=== PATIENT | female | born 1970 | race Caucasian/White ===

== ENCOUNTER → 2016-12-03 | Outpatient (CLI) | payer OTHER ==
--- NOTE | 2016-12-04 07:50 | MM ---
Reason for exam: additional evaluation requested from abnormal screening. Last mammogram was performed less than 1 month ago. History: Took hormonal contraceptives for 12 years beginning at age 18. Physical Findings: Nurse did not find any significant physical abnormalities on exam. MG 3D Work Up W/Cad LT CC, MLO, and ML view(s) were taken of the left breast. Prior study comparison: November 26, 2016, bilateral MG 3d screening mammo w/cad. April 16, 2015, right breast US breast workup limited RT. April 11, 2015, bilateral MG screening mammo w CAD. December 20, 2012, bilateral digital screening mammo w/CAD. The breast tissue is heterogeneously dense. This may lower the sensitivity of mammography. The questioned superior asymmetric density does not persist. These results were verbally communicated with the patient and result sheet given to the patient on 12/03/16. ASSESSMENT: Negative, BI-RAD 1 RECOMMENDATION: Return to routine screening mammogram schedule for both breasts.
== END | disposition home or self-care (01) ==
LOC: RADMAMWWP 15:40
PROVIDERS: ATTEND Obstetrics & Gynecology
DX: R92.8 Other abnormal and inconclusive findings on diagnostic imaging of breast (principal)
CPT/HCPCS: G0206; G0279

== ENCOUNTER → 2016-12-16 | Outpatient (CLI) | payer OTHER ==
[2016-12-16 10:27] LABS: Basophils # (A) 0.1 k/uL (0-0.2); Basophils % (A) 1 %; CH 31.5; CHCM 32.3; Eosinophils # (A) 0.3 k/uL (0-0.7); Eosinophils % (A) 5 %; HCT 43.5 % (34.0-46.0); HDW 2.34; HGB 14.4 gm/dL (11.4-16.0); Luc # (Auto) 0.09; Luc % (Auto) 2; Lymphocytes # (A) 1.8 k/uL (1.0-4.8); Lymphocytes % (A) 30 %; MCH 32.4 pg (25.0-35.0); Mean Platelet Volume 6.9; Monocytes # (A) 0.3 k/uL (0-1.0); Monocytes % (A) 5 %; Neutrophils # (A) 3.4 k/uL (1.3-7.7); Neutrophils % (A) 57 %; RBC 4.44 m/uL (3.80-5.40); RDW 13.3 % (11.5-15.5); WBC 5.9 k/uL (3.8-10.6); WBC (Perox) 6.32
[2016-12-16 10:46] LABS: Anion Gap 10 mmol/L; Blood Urea Nitrogen 14 mg/dL (7-17); Calcium 9.4 mg/dL (8.4-10.2); Carbon Dioxide 29 mmol/L (22-30); Chloride 104 mmol/L (98-107); Glucose 64 mg/dL (74-99); Non-African American GFR(MDRD) >60 (>60 ml/min/1.73 sqM); Potassium 4.6 mmol/L (3.5-5.1); Sodium 143 mmol/L (137-145)
== END | disposition home or self-care (01) ==
LOC: LABPAT 09:15
PROVIDERS: ATTEND Obstetrics & Gynecology
DX: Z01.812 Encounter for preprocedural laboratory examination (principal)
CPT/HCPCS: 36415; 80048; 85025

== ENCOUNTER → 2018-03-18 | Outpatient (CLI) | payer OTHER ==
--- NOTE | 2018-03-25 08:34 | MM ---
Reason for exam: screening (asymptomatic). Last mammogram was performed 1 year and 3 months ago. History: Took hormonal contraceptives for 12 years beginning at age 18. MG 3D Screening Mammo W/Cad Bilateral CC and MLO view(s) were taken. Prior study comparison: December 03, 2016, left breast MG 3d work up w/cad LT. November 26, 2016, bilateral MG 3d screening mammo w/cad. The breast tissue is heterogeneously dense. This may lower the sensitivity of mammography. No significant changes when compared with prior studies. ASSESSMENT: Negative, BI-RAD 1 RECOMMENDATION: Routine screening mammogram of both breasts in 1 year.
== END | disposition home or self-care (01) ==
LOC: RADMAMWWP 12:43
PROVIDERS: ATTEND Family Medicine
DX: Z12.31 Encounter for screening mammogram for malignant neoplasm of breast (principal)
CPT/HCPCS: 77063; 77067

== ENCOUNTER 2018-09-07 08:45 | Day surgery (SDC) | payer OTHER ==
[2018-09-02 10:27] VITALS: BMI 31.2
[~2018-09-07 08:45] MED LIST: LACTATED RINGERS 1,000 ML IV SCH; LIDOCAINE 1% 20 ML VIAL (10MG/ML) FOR IV START INTRADERMA PRN
[2018-09-07 09:06] VITALS: TEMP 97.9
[2018-09-07] MEDS ORDERED: LIDOCAINE 1% INJ 10MG/ML (20 ML MDV) ONE (09:58)
[2018-09-07] MEDS ORDERED: PROPOFOL 10 MG/ML 20 ML VIAL IV ONE (09:58)
--- NOTE | 2018-09-07 10:01 | P.GSHP ---
History of Present Illness H&P Date: 09/07/18 Chief Complaint: GERD, globus Patient has complaints of feeling something in the back of her throat. She says it fluctuates. Present for the last few years. Also complaining of heartburn at times. He did have relief with Prilosec. Recently tried stopping her antiacids with recurrent symptoms. No significant dysphagia. Past Medical History Past Medical History: GERD/Reflux, Thyroid Disorder Additional Past Medical History / Comment(s): "having increase acid reflux and indigestion with feeling something is in my throat",rectocele and constipation,seasonal alg,steroid injection August 2018 History of Any Multi-Drug Resistant Organisms: None Reported Past Surgical History: Hysterectomy, Tonsillectomy, Uterine Ablation Additional Past Surgical History / Comment(s): lt knee-scope,diagnostic laparoscopic abdominal , robot hyst,rt hip injections Past Anesthesia/Blood Transfusion Reactions: Motion Sickness, Postoperative Nausea & Vomiting (PONV) Additional Past Anesthesia/Blood Transfusion Reaction / Comment(s): no hx blood transfusion Smoking Status: Never smoker - Past Family History Mother Family Medical History: Cancer Additional Family Medical History / Comment(s): melanoma stage 4 Medications and Allergies Home Medications Medication Instructions Recorded Confirmed Type Levothyroxine Sodium [Synthroid] 88 mcg PO QAM 11/27/14 09/02/18 History Multivitamins, Thera [Multivitamin 1 tab PO DAILY 12/21/16 09/02/18 History (formulary)] Ergocalciferol (Vitamin D2) 50,000 unit PO WE 09/02/18 09/02/18 History [Vitamin D2] Fexofenadine HCl [Adia Allergy] 180 mg PO DAILY 09/02/18 09/07/18 History Montelukast [Singulair] 10 mg PO DAILY 09/02/18 09/02/18 History Triamcinolone Acetonide [Nasacort] 1 spray EA NOSTRIL DAILY 09/02/18 09/07/18 History Allergies Allergy/AdvReac Type Severity Reaction Status Date / Time Penicillins Allergy Anaphylaxis Verified 09/07/18 08:57 Surgical - Exam Vital Signs Temp Pulse Resp BP Pulse Ox 97.9 F 63 16 140/73 97 09/07/18 09:05 09/07/18 09:05 09/07/18 09:05 09/07/18 09:05 09/07/18 09:05 Physical exam: General: Well-developed, well-nourished HEENT: Normocephalic, sclerae nonicteric Abdomen: Nontender, nondistended Extremities: No edema Neuro: Alert and oriented Assessment and Plan (1) GERD (gastroesophageal reflux disease) Narrative/Plan: Will proceed with upper endoscopy. Current Visit: Yes Status: Acute Code(s): K21.9 - GASTRO-ESOPHAGEAL REFLUX DISEASE WITHOUT ESOPHAGITIS SNOMED Code(s): 574830920
--- NOTE | 2018-09-07 10:11 | P.PCN ---
Date of Procedure: 09/07/18 Procedure(s) Performed: Preoperative Dx: GERD, globus sensation Postoperative Dx: Mild gastritis, small gastric polyps Procedure: EGD with Bx Anesthesia: Sedation Endoscopist: Dr. Tsai Specimens: Antrum, gastric polyp Endoscopic Procedure: The patient was on the endoscopy table in the left decubitus position. The Olympus gastroscope was inserted into the oropharynx and passed under direct visualization to the region of the third portion of the duodenum. From that point the scope was slowly withdrawn inspecting all surfaces carefully. There were no neoplastic inflammatory or polypoid lesions throughout the duodenum. The pylorus was widely patent. The stomach was carefully inspected. There was mild gastritis present. A biopsy of the antrum took place to rule out H. pylori. The patient also had a few small gastric polyps. The largest was removed for sampling purposes. These all measured approximately 5 mm in size. Retroflexion revealed a normal hiatus. The esophagus was then carefully examined. There were no neoplastic inflammatory or polypoid lesions throughout the visualized esophagus. The patient was then taken to the recovery room in stable condition per anesthesia guidelines. Recommendations: Await biopsy results. Resume antiacid therapy. If globus persists consider ENT evaluation.
[2018-09-07 10:15] VITALS: RESP 18
[2018-09-07 10:30] VITALS: BP 130/84; PULSE 60
== END 2018-09-07 10:49 | disposition home or self-care (01) ==
LOC: ORWHC2ENDO 08:45
PROVIDERS: ATTEND Surgery
DX: K29.50 Unspecified chronic gastritis without bleeding (principal); K31.7 Polyp of stomach and duodenum; K21.9 Gastro-esophageal reflux disease without esophagitis; F45.8 Other somatoform disorders; E07.9 Disorder of thyroid, unspecified; F90.9 Attention-deficit hyperactivity disorder, unspecified type; F32.9 Major depressive disorder, single episode, unspecified; Z80.8 Family history of malignant neoplasm of other organs or systems; Z79.890 Hormone replacement therapy; Z79.51 Long term (current) use of inhaled steroids; Z88.0 Allergy status to penicillin; Z79.899 Other long term (current) drug therapy
CPT/HCPCS: 88305; 43239; J2001; J2704

== ENCOUNTER → 2018-11-14 | Outpatient (CLI) | payer OTHER ==
--- NOTE | 2018-11-14 15:05 | US ---
EXAMINATION TYPE: US thyroid st tissue head/neck DATE OF EXAM: 11/14/2018 COMPARISON: Nuclear medicine thyroid scan and uptake April 28, 2012 CLINICAL HISTORY: R22.0 Localized swelling, mass and lump. GLAND SIZE: Right Lobe: 4.0 x 1.8 x 1.8 cm Overall Parenchyma: heterogenous Left Lobe: 4.0 x 1.7 x 1.5 cm Overall Parenchyma: heterogeneous Isthmus Thickness: 0.4 cm NODULES RIGHT: # of nodules measured on right: 0 LEFT: # of nodules measured on left: 0 ISTHMUS: # of nodules measured in the isthmus: 0 Bilateral neck scanned, no evidence of lymphadenopathy. Slightly heterogeneous normal-sized thyroid without worrisome nodule. IMPRESSION: As above.
== END | disposition home or self-care (01) ==
LOC: RADUSWWP 14:12
PROVIDERS: ATTEND Family Medicine
DX: E06.9 Thyroiditis, unspecified (principal); R22.0 Localized swelling, mass and lump, head; Z88.0 Allergy status to penicillin
CPT/HCPCS: 76536

== ENCOUNTER → 2019-04-12 | Outpatient (CLI) | payer OTHER ==
--- NOTE | 2019-04-13 12:16 | MM ---
Reason for exam: screening (asymptomatic). Last mammogram was performed 1 year and 1 month ago. History: Took hormonal contraceptives for 12 years beginning at age 18. Physical Findings: A clinical breast exam by your physician is recommended on an annual basis and results should be correlated with mammographic findings. MG 3D Screening Mammo W/Cad Bilateral CC and MLO view(s) were taken. Prior study comparison: March 18, 2018, bilateral MG 3d screening mammo w/cad. December 03, 2016, left breast MG 3d work up w/cad LT. The breast tissue is heterogeneously dense. This may lower the sensitivity of mammography. No suspicious abnormality. No significant changes when compared with prior studies. ASSESSMENT: Negative, BI-RAD 1 RECOMMENDATION: Routine screening mammogram of both breasts in 1 year.
== END | disposition home or self-care (01) ==
LOC: RADMAMWWP 09:17
PROVIDERS: ATTEND Obstetrics & Gynecology
DX: Z12.31 Encounter for screening mammogram for malignant neoplasm of breast (principal)
CPT/HCPCS: 77063; 77067

== ENCOUNTER 2020-06-07 09:46 | Day surgery (SDC) | payer OTHER ==
[2020-06-05 10:51] VITALS: BMI 32.1
[2020-06-07 10:11] VITALS: TEMP 98.5
[2020-06-07] MEDS ORDERED: LIDOCAINE 1% (10MG/ML) FOR IV START INTRADERMA ONE (10:28)
[2020-06-07] MEDS: LACTATED RINGERS 1,000 ML IV SCH ×2 (10:29→11:23)
[2020-06-07] MEDS ORDERED: PROPOFOL 10 MG/ML 20 ML VIAL IV ONE (11:23)
--- NOTE | 2020-06-07 11:25 | P.GSHP ---
History of Present Illness H&P Date: 06/07/20 Chief Complaint: Screen colonoscopy This a 50-year-old female who presents today for screening colonoscopy. Patient denies a significant GI complaints. Past Medical History Past Medical History: GERD/Reflux, Thyroid Disorder Additional Past Medical History / Comment(s): RLS, History of Any Multi-Drug Resistant Organisms: None Reported Past Surgical History: Hysterectomy, Orthopedic Surgery, Tonsillectomy, Uterine Ablation Additional Past Surgical History / Comment(s): lt knee-scope,diagnostic laparoscopic abdominal ,rt hip injections Past Anesthesia/Blood Transfusion Reactions: Motion Sickness, Postoperative Nausea & Vomiting (PONV) Additional Past Anesthesia/Blood Transfusion Reaction / Comment(s): no hx blood transfusion Smoking Status: Never smoker - Past Family History Mother Family Medical History: Cancer Additional Family Medical History / Comment(s): melanoma stage 4 Medications and Allergies Home Medications Medication Instructions Recorded Confirmed Type Multivitamins, Thera [Multivitamin 1 tab PO DAILY 12/21/16 06/07/20 History (formulary)] Fexofenadine HCl [Adia Allergy] 180 mg PO DAILY 09/02/18 06/07/20 History Triamcinolone Acetonide [Nasacort] 1 spray EA NOSTRIL DAILY 09/02/18 06/07/20 History Magnesium Oxide 400 mg PO HS 06/05/20 06/07/20 History Thyroid,Pork [Sweep Molder Thyroid] 60 mg PO DAILY 06/05/20 06/07/20 History Topiramate [Topamax] 50 mg PO BID 06/05/20 06/07/20 History rOPINIRole HCL [Requip] 0.5 mg PO HS 06/05/20 06/07/20 History Naproxen Sodium [Aleve] 440 mg PO ONCE 06/07/20 06/07/20 History Allergies Allergy/AdvReac Type Severity Reaction Status Date / Time Penicillins Allergy Anaphylaxis Verified 06/07/20 10:04 Surgical - Exam Vital Signs Temp Pulse Resp BP Pulse Ox 98.5 F 67 16 166/74 100 06/07/20 10:10 06/07/20 10:10 06/07/20 10:10 06/07/20 10:10 06/07/20 10:10 - General well developed, well nourished, no distress - Eyes PERRL - ENT normal pinna - Neck no masses - Respiratory normal expansion - Cardiovascular Rhythm: regular - Abdomen Abdomen: soft, non tender Assessment and Plan Assessment: Perform screening colonoscopy.
--- NOTE | 2020-06-07 11:35 | P.OP ---
Date of Procedure: 06/07/20 Preoperative Diagnosis: Screening colonoscopy Postoperative Diagnosis: Normal colonoscopy Procedure(s) Performed: Colonoscopy Anesthesia: MAC Surgeon: Arturo Sun Pathology: none sent Condition: stable Disposition: PACU Description of Procedure: PROCEDURE: The patient was placed on the endoscopy table in the lateral position. Digital rectal examination was performed which revealed no abnormalities. . Flexible colonoscope was then placed in the patient's anus and passed throughout the entire colon. The ileocecal valve was visualized. The cecum, ascending, transverse, descending and sigmoid colon were normal. The rectum was normal as well. There were no masses, polyps or diverticula noted in the entire colon. SUMMARY OF FINDINGS: Normal colonoscopy.
[2020-06-07 12:23] VITALS: BP 128/87; PULSE 88; RESP 20
== END 2020-06-07 12:23 | disposition home or self-care (01) ==
LOC: ORWHC2ENDO 09:46
PROVIDERS: ATTEND Surgery
DX: Z12.11 Encounter for screening for malignant neoplasm of colon (principal); K21.9 Gastro-esophageal reflux disease without esophagitis; G25.81 Restless legs syndrome; Z80.8 Family history of malignant neoplasm of other organs or systems; Z79.890 Hormone replacement therapy; Z79.899 Other long term (current) drug therapy; Z88.0 Allergy status to penicillin
CPT/HCPCS: 45378; J2704

== ENCOUNTER → 2020-07-04 | Outpatient (CLI) | payer OTHER ==
--- NOTE | 2020-07-05 13:30 | MM ---
Reason for exam: screening (asymptomatic). Last mammogram was performed 1 year and 3 months ago. History: Took hormonal contraceptives for 12 years beginning at age 18. Physical Findings: A clinical breast exam by your physician is recommended on an annual basis and results should be correlated with mammographic findings. MG 3D Screening Mammo W/Cad Bilateral CC and MLO view(s) were taken. Prior study comparison: April 12, 2019, bilateral MG 3d screening mammo w/cad. March 18, 2018, bilateral MG 3d screening mammo w/cad. The breast tissue is heterogeneously dense. This may lower the sensitivity of mammography. Benign appearing calcifications in the right breast. No significant changes when compared with prior studies. ASSESSMENT: Benign, BI-RAD 2 RECOMMENDATION: Routine screening mammogram of both breasts in 1 year.
== END | disposition home or self-care (01) ==
LOC: RADMAMWWP 13:15
PROVIDERS: ATTEND Family Medicine
DX: Z12.31 Encounter for screening mammogram for malignant neoplasm of breast (principal)
CPT/HCPCS: 77063; 77067

== ENCOUNTER 2020-11-21 06:55 | Emergency (ER) | payer OTHER ==
[2020-11-21 07:02] VITALS: RESP 18
[2020-11-21] MEDS ORDERED: SODIUM CHLORIDE 0.9% 1,000 ML IV STA (07:04)
[2020-11-21] MEDS ORDERED: SODIUM CHLORIDE 0.9% 500 ML 500 ML IV STA (07:04)
[2020-11-21] MEDS ORDERED: METOCLOPRAMIDE 5 MG/ML 2 ML VIAL IVP STA (07:18)
--- NOTE | 2020-11-21 07:26 | ED ---
Abdominal Pain HPI - General Chief Complaint: Abdominal Pain Stated Complaint: Abdominal Pain Time Seen by Provider: 11/21/20 07:04 Source: patient, RN notes reviewed Mode of arrival: wheelchair Limitations: no limitations - History of Present Illness Initial Comments: This a 50-year-old female presents emergency with chief complaint of abdominal pain. Patient states she has been constipated for over 10 days and which she states she drank a bottle magnesium citrate a few days ago states she had a bowel movement but states it was not nearly enough she still states her last 3 night she's taken 2 Dulcolax and last that she did end up taking 3. She states she woke up this morning had liquid stool severe abdominal pain cramping. Patient states she did have colonoscopy within the last year she states was normal. She's had a history of hysterectomy no point dysuria hematuria she states she had severe cramping, cold sweats morning no chest pain or shortness of breath. - Related Data Home Medications Medication Instructions Recorded Confirmed Thyroid,Pork [Managing Partner Thyroid] 60 mg PO DAILY 06/05/20 11/21/20 rOPINIRole HCL [Requip] 0.5 mg PO HS 06/05/20 11/21/20 Naproxen Sodium [Aleve] 440 mg PO HS 06/07/20 11/21/20 Phentermine HCl [Adipex-P] 37.5 mg PO DAILY 11/21/20 11/21/20 Rybelsus (Unknown Dose) 1 dose PO DAILY 11/21/20 11/21/20 Allergies Allergy/AdvReac Type Severity Reaction Status Date / Time Penicillins Allergy Anaphylaxis Verified 11/21/20 07:02 Review of Systems ROS Statement: Those systems with pertinent positive or pertinent negative responses have been documented in the HPI. ROS Other: All systems not noted in ROS Statement are negative. Past Medical History Past Medical History: GERD/Reflux, Thyroid Disorder Additional Past Medical History / Comment(s): RLS, History of Any Multi-Drug Resistant Organisms: None Reported Past Surgical History: Hysterectomy, Orthopedic Surgery, Tonsillectomy, Uterine Ablation Additional Past Surgical History / Comment(s): lt knee-scope,diagnostic laparoscopic abdominal ,rt hip injections Past Anesthesia/Blood Transfusion Reactions: Motion Sickness, Postoperative Nausea & Vomiting (PONV) Additional Past Anesthesia/Blood Transfusion Reaction / Comment(s): no hx blood transfusion Past Psychological History: ADD/ADHD Smoking Status: Never smoker Past Alcohol Use History: Rare Past Drug Use History: None Reported - Past Family History Mother Family Medical History: Cancer Additional Family Medical History / Comment(s): melanoma stage 4 General Exam General appearance: alert, in no apparent distress Head exam: Present: atraumatic, normocephalic, normal inspection Eye exam: Present: normal appearance, PERRL, EOMI. Absent: scleral icterus, conjunctival injection, periorbital swelling ENT exam: Present: normal exam, normal oropharynx, mucous membranes moist Neck exam: Present: normal inspection, full ROM. Absent: tenderness, meningismus, lymphadenopathy Respiratory exam: Present: normal lung sounds bilaterally. Absent: respiratory distress, wheezes, rales, rhonchi, stridor Cardiovascular Exam: Present: regular rate, normal rhythm, normal heart sounds. Absent: systolic murmur, diastolic murmur, rubs, gallop, clicks GI/Abdominal exam: Present: soft, tenderness (Mild diffuse), normal bowel sounds. Absent: distended, guarding, rebound, rigid Back exam: Absent: CVA tenderness (R), CVA tenderness (L) Neurological exam: Present: alert Skin exam: Present: warm, dry, intact, normal color. Absent: rash Course Vital Signs 11/21/20 11/21/20 06:58 08:02 Temperature 97.5 F L Pulse Rate 70 Respiratory 18 18 Rate Blood Pressure 127/84 O2 Sat by Pulse 100 Oximetry Medical Decision Making - Medical Decision Making 50-year-old presented for abdominal pain after multiple laxatives. Patient CT shows some mild colitis most likely inflammatory felt less likely infectious. She has no leukocytosis no fever. She was hydrated, given antiemetics and feels improved. Patient will start clear liquid Diet will return for any worsening change in symptoms. - Lab Data Result diagrams: 11/21/20 07:40 11/21/20 07:40 Lab Results 11/21/20 11/21/20 11/21/20 Range/Units 07:40 07:40 07:40 WBC 7.0 (3.8-10.6) k/uL RBC 4.84 (3.80-5.40) m/uL Hgb 15.6 (11.4-16.0) gm/dL Hct 45.0 (34.0-46.0) % MCV 93.0 (80.0-100.0) fL MCH 32.1 (25.0-35.0) pg MCHC 34.6 (31.0-37.0) g/dL RDW 12.6 (11.5-15.5) % Plt Count 313 (150-450) k/uL MPV 7.6 Neutrophils % 60 % Lymphocytes % 28 % Monocytes % 6 % Eosinophils % 4 % Basophils % 1 % Neutrophils # 4.2 (1.3-7.7) k/uL Lymphocytes # 1.9 (1.0-4.8) k/uL Monocytes # 0.4 (0-1.0) k/uL Eosinophils # 0.3 (0-0.7) k/uL Basophils # 0.1 (0-0.2) k/uL Sodium 139 (137-145) mmol/L Potassium 4.0 (3.5-5.1) mmol/L Chloride 105 (98-107) mmol/L Carbon Dioxide 24 (22-30) mmol/L Anion Gap 10 mmol/L BUN 24 H (7-17) mg/dL Creatinine 0.67 (0.52-1.04) mg/dL Est GFR (CKD-EPI)AfAm >90 (>60 ml/min/1.73 sqM) Est GFR (CKD-EPI)NonAf >90 (>60 ml/min/1.73 sqM) Glucose 119 H (74-99) mg/dL Plasma Lactic Acid [place] (0.7-2.0) mmol/L Calcium 10.5 H (8.4-10.2) mg/dL Total Bilirubin 0.5 (0.2-1.3) mg/dL AST 31 (14-36) U/L ALT 27 (4-34) U/L Alkaline Phosphatase 73 (38-126) U/L Total Protein 7.4 (6.3-8.2) g/dL Albumin 4.6 (3.5-5.0) g/dL Amylase 62 (30-110) U/L Lipase 150 (23-300) U/L Urine Color Yellow Urine Appearance Cloudy H (Clear) Urine pH 5.0 (5.0-8.0) Ur Specific [place] 1.033 (1.001-1.035) Urine Protein Trace H (Negative) Urine Glucose (UA) Negative (Negative) Urine Ketones 1+ H (Negative) Urine Blood Negative (Negative) Urine Nitrite Negative (Negative) Urine Bilirubin Negative (Negative) Urine Urobilinogen 2.0 (<2.0) mg/dL Ur Leukocyte Esterase Negative (Negative) Urine RBC 1 (0-5) /hpf Urine WBC 1 (0-5) /hpf Ur Squamous Epith Cells 5 H (0-4) /hpf Urine Bacteria Rare H (None) /hpf Hyaline Casts 19 H (0-2) /lpf Urine Mucus Many H (None) /hpf 11/21/20 Range/Units 07:40 WBC (3.8-10.6) k/uL RBC (3.80-5.40) m/uL Hgb (11.4-16.0) gm/dL Hct (34.0-46.0) % MCV (80.0-100.0) fL MCH (25.0-35.0) pg MCHC (31.0-37.0) g/dL RDW (11.5-15.5) % Plt Count (150-450) k/uL MPV Neutrophils % % Lymphocytes % % Monocytes % % Eosinophils % % Basophils % % Neutrophils # (1.3-7.7) k/uL Lymphocytes # (1.0-4.8) k/uL Monocytes # (0-1.0) k/uL Eosinophils # (0-0.7) k/uL Basophils # (0-0.2) k/uL Sodium (137-145) mmol/L Potassium (3.5-5.1) mmol/L Chloride (98-107) mmol/L Carbon Dioxide (22-30) mmol/L Anion Gap mmol/L BUN (7-17) mg/dL Creatinine (0.52-1.04) mg/dL Est GFR (CKD-EPI)AfAm (>60 ml/min/1.73 sqM) Est GFR (CKD-EPI)NonAf (>60 ml/min/1.73 sqM) Glucose (74-99) mg/dL Plasma Lactic Acid [place] 0.8 (0.7-2.0) mmol/L Calcium (8.4-10.2) mg/dL Total Bilirubin (0.2-1.3) mg/dL AST (14-36) U/L ALT (4-34) U/L Alkaline Phosphatase (38-126) U/L Total Protein (6.3-8.2) g/dL Albumin (3.5-5.0) g/dL Amylase (30-110) U/L Lipase (23-300) U/L Urine Color Urine Appearance (Clear) Urine pH (5.0-8.0) Ur Specific [place] (1.001-1.035) Urine Protein (Negative) Urine Glucose (UA) (Negative) Urine Ketones (Negative) Urine Blood (Negative) Urine Nitrite (Negative) Urine Bilirubin (Negative) Urine Urobilinogen (<2.0) mg/dL Ur Leukocyte Esterase (Negative) Urine RBC (0-5) /hpf Urine WBC (0-5) /hpf Ur Squamous Epith Cells (0-4) /hpf Urine Bacteria (None) /hpf Hyaline Casts (0-2) /lpf Urine Mucus (None) /hpf Disposition Clinical Impression: Colitis, Abdominal pain Disposition: HOME SELF-CARE Condition: Stable Instructions (If sedation given, give patient instructions): Colitis (ED) Additional Instructions: Please return to the Emergency Department if symptoms worsen or any other concerns. Is patient prescribed a controlled substance at d/c from ED?: No Referrals: Heather Dominguez DO [Primary Care Provider] - 1-2 days Time of Disposition: 08:34
[2020-11-21 07:50] LABS: Basophils # (A) 0.1 k/uL (0-0.2); Basophils % (A) 1 %; Eosinophils # (A) 0.3 k/uL (0-0.7); Eosinophils % (A) 4 %; HGB 15.6 gm/dL (11.4-16.0); Lymphocytes # (A) 1.9 k/uL (1.0-4.8); Lymphocytes % (A) 28 %; MCH 32.1 pg (25.0-35.0); MCHC 34.6 g/dL (31.0-37.0); Mean Platelet Volume 7.6; Monocytes # (A) 0.4 k/uL (0-1.0); Monocytes % (A) 6 %; Neutrophils # (A) 4.2 k/uL (1.3-7.7); Neutrophils % (A) 60 %; Platelet Count 313 k/uL (150-450); RBC 4.84 m/uL (3.80-5.40); RDW 12.6 % (11.5-15.5)
[2020-11-21 08:07] LABS: Appearance,Urine Cloudy (Clear); Bacteria,Urine Rare /hpf; Bilirubin,Urine Negative (Negative); Blood,Urine Negative (Negative); Color,Urine Yellow; Glucose,Urine (UA) Negative (Negative); Hyaline Casts,Urine 19 /lpf (0-2); Ketones,Urine 1+ (Negative); Leukocyte Esterase,Urine Negative (Negative); Mucus,Urine Many /hpf; Nitrite,Urine Negative (Negative); Protein,Urine Trace (Negative); RBC,Urine 1 /hpf (0-5); Specific Gravity,Urine 1.033 (1.001-1.035); Squamous Epithelial Cell,Urine 5 /hpf (0-4); WBC,Urine 1 /hpf (0-5)
[2020-11-21 08:16] LABS: ALT 27 U/L (4-34); AST 31 U/L (14-36); African American GFR (CKD) >90 (>60 ml/min/1.73 sqM); Albumin 4.6 g/dL (3.5-5.0); Alkaline Phosphatase 73 U/L (38-126); Amylase 62 U/L (30-110); Anion Gap 10 mmol/L; Blood Urea Nitrogen 24 mg/dL (7-17); Calcium 10.5 mg/dL (8.4-10.2); Carbon Dioxide 24 mmol/L (22-30); Chloride 105 mmol/L (98-107); Glucose 119 mg/dL (74-99); Lipase 150 U/L (23-300); Non-African American GFR(CKD) >90 (>60 ml/min/1.73 sqM); Sodium 139 mmol/L (137-145); Total Bilirubin 0.5 mg/dL (0.2-1.3); Total Protein 7.4 g/dL (6.3-8.2)
--- NOTE | 2020-11-21 08:27 | CT ---
EXAMINATION TYPE: CT abdomen pelvis w con DATE OF EXAM: 11/21/2020 HISTORY: Abdominal pain generalized with constipation CT DLP: 1016.1mGycm Automated Exposure Control for Dose Reduction was Utilized. CONTRAST: CT scan of the abdomen and pelvis is performed without oral but with IV Contrast, patient injected wi th 100 ml mL of Isovue 300. COMPARISON: None. FINDINGS: LUNG BASES: Some patchy dependent atelectasis. LIVER/GB: No significant abnormality is appreciated. PANCREAS: No significant abnormality is seen. SPLEEN: Location of punctate calcifications throughout the spleen consistent with products of old gra nulomatous disease. ADRENALS: No significant abnormality is seen. KIDNEYS: Tiny hypodense lesion lower pole right kidney axial image 42 too small to further characteri ze. Larger subcentimeter lesion anteriorly right kidney delayed axial image 29. Both strongly favored benign. BOWEL: Slightly suboptimal evaluation of bowel without enteric contrast. No suspicious small or large bowel dilatation. Some abnormal fluid in the right colon. [id number] concentric wall thickenin g in the transverse and left colon extending into the sigmoid colon and rectum. No significant surrou nding fat stranding. No free air. UTERUS/ADNEXA: Uterus surgically absent or markedly atrophic. LYMPH NODES: No greater than 1cm abdominal or pelvic lymph nodes are appreciated. OSSEOUS STRUCTURES: Facet arthropathy lower lumbar levels. Disc herniation L3-L4 level mildly effaces the anterior thecal sac sagittal image 62. OTHER: No significant additional abnormality is seen. IMPRESSION: Crgm-ht-kozaepdu concentric wall thickening from hepatic flexure through the rectum is arriaaz spicious for a mild uncomplicated colitis. Correlate clinically. Abnormal fluid signal right colon co uld reflect continuation of mild colitis and/or diarrhea. Consider infectious and/or inflammatory michelle ologies.
[2020-11-21 08:48] VITALS: BP 115/68; PULSE 63; TEMP 97.6
== END 2020-11-21 07:45 | disposition home or self-care (01) ==
LOC: EC 06:55
DX: K52.9 Noninfective gastroenteritis and colitis, unspecified (principal); K59.00 Constipation, unspecified; K21.9 Gastro-esophageal reflux disease without esophagitis; F90.9 Attention-deficit hyperactivity disorder, unspecified type; Z90.710 Acquired absence of both cervix and uterus; Z90.89 Acquired absence of other organs; Z88.0 Allergy status to penicillin
CPT/HCPCS: 99284; 96374; 96361; 36415; 80053; 82150; 83605; 83690; 85025; 81001; 74177; J2765; Q9967

== ENCOUNTER → 2021-01-16 | Outpatient (CLI) | payer OTHER ==
[2021-01-16 18:33] LABS: INR 0.93 (0.90-1.11); Prothrombin Time 10.3 sec (9.9-11.9)
[2021-01-16 18:54] LABS: Basophils # (A) 0.08 X 10*3/uL (0.00-0.10); Basophils % (A) 1.2 %; Eosinophils # (A) 0.18 X 10*3/uL (0.04-0.35); Eosinophils % (A) 2.6 %; HCT 40.8 % (37.2-46.3); HGB 13.5 g/dL (12.0-15.0); Lymphocytes # (A) 2.25 X 10*3/uL (0.90-5.00); MCH 30.6 pg (27.0-32.0); MCHC 33.1 g/dL (32.0-37.0); MCV 92.5 fL (80.0-97.0); Mean Platelet Volume 10.5 fL (9.5-12.2); Monocytes # (A) 0.53 X 10*3/uL (0.20-1.00); Monocytes % (A) 7.8 %; Neutrophils # (A) 3.77 X 10*3/uL (1.80-7.70); Neutrophils % (A) 55.3 %; Platelet Count 306 X 10*3/uL (140-440); RBC 4.41 X 10*6/uL (4.10-5.20); WBC 6.82 X 10*3/uL (4.50-10.00)
[2021-01-16 19:24] LABS: Anion Gap 14.4 mmol/L (4.00-12.00); Carbon Dioxide 22.6 mmol/L (21.6-31.8); Potassium 3.9 mmol/L (3.5-5.5)
== END | disposition home or self-care (01) ==
LOC: LABWHC1 12:45
PROVIDERS: ATTEND Orthopaedic Surgery
DX: Z01.812 Encounter for preprocedural laboratory examination (principal); Z22.322 Carrier or suspected carrier of Methicillin resistant Staphylococcus aureus; M16.11 Unilateral primary osteoarthritis, right hip
CPT/HCPCS: 36415; 80051; 85025; 85610; 86850; 86900; 86901; 87070; 93005

== ENCOUNTER 2021-01-27 08:36 | Day surgery (SDC) | payer OTHER ==
[2021-01-16 18:33] LABS: INR 0.93 (0.90-1.11); Prothrombin Time 10.3 sec (9.9-11.9)
[2021-01-16 18:54] LABS: Basophils # (A) 0.08 X 10*3/uL (0.00-0.10); Basophils % (A) 1.2 %; Eosinophils # (A) 0.18 X 10*3/uL (0.04-0.35); Eosinophils % (A) 2.6 %; HCT 40.8 % (37.2-46.3); HGB 13.5 g/dL (12.0-15.0); Lymphocytes # (A) 2.25 X 10*3/uL (0.90-5.00); MCH 30.6 pg (27.0-32.0); MCHC 33.1 g/dL (32.0-37.0); MCV 92.5 fL (80.0-97.0); Mean Platelet Volume 10.5 fL (9.5-12.2); Monocytes # (A) 0.53 X 10*3/uL (0.20-1.00); Monocytes % (A) 7.8 %; Neutrophils # (A) 3.77 X 10*3/uL (1.80-7.70); Neutrophils % (A) 55.3 %; Platelet Count 306 X 10*3/uL (140-440); RBC 4.41 X 10*6/uL (4.10-5.20); WBC 6.82 X 10*3/uL (4.50-10.00)
[2021-01-16 19:24] LABS: Anion Gap 14.4 mmol/L (4.00-12.00); Carbon Dioxide 22.6 mmol/L (21.6-31.8); Potassium 3.9 mmol/L (3.5-5.5)
--- NOTE | 2021-01-26 11:54 | HP ---
HISTORY AND PHYSICAL DATE OF SURGERY: 01/27/2021 Kasia Mora is a 50-year-old patient seen with symptomatic right hip osteoarthritis. We discussed options for treatment. She elected to proceed with direct anterior right total hip arthroplasty. Consent was obtained. PAST MEDICAL HISTORY: Hypertension, hypothyroidism. PAST SURGICAL HISTORY: Hysterectomy, left knee arthroscopy, laparoscopy, tonsillectomy. DAILY MEDICATIONS: Aleve, [place] Thyroid, hydrochlorothiazide. ALLERGIES: NONE REPORTED. SOCIAL HISTORY: She denies tobacco use. PHYSICAL EVALUATION OF THE RIGHT HIP: She has diffuse tenderness about the hip girdle, limited range of motion with severe pain, positive hip impingement sign. Straight-leg raise negative. Distal neurovascular exam is intact. Radiographs of the right hip reveal severe osteoarthritic changes. IMPRESSION: 1. Right hip osteoarthritis. 2. Hypertension. 3. Hypothyroidism. PLAN: Direct anterior right total hip arthroplasty. MMODL / IJN: [id number] /
[~2021-01-27 08:36] MED LIST changes: +ACETAMINOPHEN TAB 500 MG TAB PO PRN; +DEXAMETHASONE SOD PHOSPHATE 4 MG/ML 1 ML VIAL IV ONE; -LIDOCAINE 1% 20 ML VIAL (10MG/ML) FOR IV START INTRADERMA PRN; +MELOXICAM 7.5 MG TAB PO PRN; +ONDANSETRON 4 MG/2 ML VIAL IVP ONE; +TRANEXAMIC ACID 1,000 MG in SODIUM CHLORIDE 0.9% 100 ML IVPB PRN; +VANCOMYCIN 1,250 MG in SODIUM CHLORIDE 0.9% 250 ML IVPB PRN
[2021-01-27] MEDS ORDERED: MIDAZOLAM 2 MG/2 ML VIAL ONE (10:16)
[2021-01-27] MEDS ORDERED: SODIUM CHLORIDE 0.9% 100 ML BAG ONE (10:16)
[2021-01-27] MEDS ORDERED: PROPOFOL 10 MG/ML 20 ML VIAL IV ONE (10:16)
[2021-01-27] MEDS ORDERED: LIDOCAINE 1% INJ 10MG/ML (20 ML MDV) ONE (10:16)
[2021-01-27] MEDS ORDERED: TRANEXAMIC ACID 1,000 MG/10 ML VIAL ONE (10:16)
[2021-01-27] MEDS ORDERED: SUCCINYLCHOLINE CHLORIDE 100 MG/5 ML SYR IV ONE (10:16)
[2021-01-27] MEDS ORDERED: fentaNYL (PF) 50 MCG/ML 2 ML AMP ONE (10:16)
[2021-01-27] MEDS ORDERED: SODIUM CHLORIDE 0.9% 100 ML with ceFAZolin 2,000 MG IV ONE ×2 (10:30)
[2021-01-27] MEDS ORDERED: ceFAZolin 1,000 MG in SODIUM CHLORIDE 0.9% 1,000 ML IRRIGATION ONE (10:45)
[2021-01-27] MEDS: ROPIVACAINE/EPI/CLONIDINE/KET 50 ML SYRINGE MISCELLANE PRN ×2 (10:49→11:45)
[2021-01-27] MEDS ORDERED: LACTATED RINGERS 1,000 ML IV ONE ×4 (11:27→13:55)
[2021-01-27] MEDS ORDERED: NALOXONE 0.4 MG/ML 1 ML VIAL IV PRN (11:59)
[2021-01-27] MEDS ORDERED: ONDANSETRON 4 MG/2 ML VIAL IVP PRN (11:59)
[2021-01-27] MEDS ORDERED: HYDROcodone/APAP 7.5-325MG 1 EACH TAB PO PRN (11:59)
[2021-01-27] MEDS ORDERED: HYDROmorphone 0.2 MG/1 ML SYRINGE IM PRN (11:59)
[2021-01-27] MEDS ORDERED: HYDROmorphone 0.5 MG/0.5 ML SYRINGE IVP PRN ×2 (11:59)
[2021-01-27] MEDS ORDERED: HYDROcodone/APAP 5-325MG 1 EACH TAB PO PRN (11:59)
--- NOTE | 2021-01-27 11:59 | P.OP ---
Date of Procedure: 01/27/21 Preoperative Diagnosis: Right hip osteoarthritis Postoperative Diagnosis: Right hip osteoarthritis Procedure(s) Performed: Direct anterior right total hip arthroplasty Implants: 1. Depuy Corail KA size 11 with collar press-fit femoral stem 2. Depuy pinnacle 52 mm press-fit acetabular shell 3. Depuy pinnacle polyethylene acetabular liner 36 mm ID 52 mm OD 4. Depuy metal femoral head 36 mm -2 Anesthesia: GETA, local Surgeon: Kem Browning Residential Support Specialist #1: Derek Aburto Estimated Blood Loss (ml): 90 Pathology: other (Femoral head) Condition: stable Disposition: PACU Indications for Procedure: 50-year-old patient seen with some traumatic right hip osteoarthritis. After having treatment options discussed, she elected to proceed with direct anterior right total hip arthroplasty. Operative Findings: See description of procedure Description of Procedure: The patient was taken to the operative suite. Patient underwent a spinal anesthetic by the department of anesthesia. Patient was then transferred to the [place] table. Patient was given preoperative IV antibiotics and TXA. Both lower extremities were placed in standard leg spars. The hip was then prepped and draped in the normal sterile orthopedic fashion. A standard anterior incision was made beginning 3 cm lateral and 1 cm distal to the ASIS extending 10 cm. Dissection was then carried down through the subcutaneous soft tissues down to the fascia overlying the tensor fascia barron. An incision was now made through the fascia. Careful dissection was taken down exposing the tensor fascia barron muscle. A Cobra retractor was now placed along the medial femoral neck and a second one along the lateral femoral neck. The venous circumflex vessels were now identified, cauterized and clipped. We identified the anterior hip capsule. An incision was made through the hip capsule along the lateral border. I performed a partial anterior capsulectomy. Retractors were now placed around the femoral neck itself. A femoral neck cut was now made with a sagittal saw. It was completed with an osteotome at the lateral neck area. The femoral head was now removed without difficulty. The extremity was now rotated to 60 of external rotation. It was locked in position. Residual labrum was now debrided out. Serial reaming was performed of the acetabulum while Col Lamonte APARICIO assisted holding an anterior retractor for exposure. Once we reached the appropriate size and a trial was position and fit nicely. The appropriate size was now chosen opened and made available. It was introduced into the acetabulum without difficulty. The C-arm/fluoroscopy was now brought into the operative field. We made sure we had a true AP pelvic view. We now under direct C- arm/fluoroscopy introduced into the acetabular component with appropriate version and inclination. I held the cup in appropriate position well Derek APARICIO used a mallet to seat the acetabular component. I noted the component now to be well seated and stable. Acetabular cup introduce her was removed. The C-arm was pulled back. An appropriate liner was introduced and clicked into position. It was felt to be stable. At this point retractors were removed. The extremity was now placed into 140 external rotation with no traction. The leg was now dropped to the ground and adducted. Appropriate retractors were now positioned along the proximal femur. We also placed our femoral look into position. Additional capsular releasing was performed to gain access to the proximal femur. We now used a box osteotome. A canal finder was now utilized. Serial broaching was now performed with the assistance of Derek APARICIO tapping the broaches down with a mallet while held the broach in appropriate rotation and position. This was done until we reached the appropriate size with good overall rotational stability. Appropriate calcar planing was performed. A trial head/neck was placed into position. The hip was now reduced. The C- arm/fluoroscopy was brought back into the operative field. I obtained an AP pelvis demonstrating adequate leg length alignment as well as adequate sizing/positioning of the trial components. The C-arm/fluoroscopy was pulled back. Retractors were repositioned and the hip was dislocated. The leg was again taken down to the ground and adducted. Appropriate retractors were repositioned as well as the femoral hook. All trial components were removed. The femoral implant was opened along with the femoral head. The femoral implant was introduced on the appropriate handle into our pre-broached area. I held the component position while Geovani APARICIO used a mallet to seat the femoral component. The femoral component was now noted to be well seated and stable. The femoral head was introduced with good positioning and fixation noted. Retractors were now removed. The hip was now reduced. There appeared be good positioning of the hip confirmed on intraoperative fluoroscopy. Spot films were obtained to document this. A second gram of TXA was given. The deep and superficial soft tissues were infiltrated with local analgesic. Bipolar cautery had been utilized intermittently through the procedure for hemostasis. The wound was irrigated copiously with pulse lavage mechanical irrigation. The fascia was repaired with Vicryl suture. The subcutaneous soft tissues were r epaired in layers with Vicryl suture. The skin was approximated with pernio/Dermabond. Sterile dressings were applied. Patient was then awakened, transferred to a bed and taken to recovery in stable condition. Derek APARICIO assisted with the complex procedure.
--- NOTE | 2021-01-27 12:13 | FL ---
EXAMINATION TYPE: FL guidance operating room, XR Hip Limited RT DATE OF EXAM: 01/27/2021 CLINICAL HISTORY: Right hip pain and osteoarthritis. TECHNIQUE: Fluoroscopy. Limited intraoperative views right hip. COMPARISON: CT abdomen and pelvis November 21, 2020 FINDINGS: Fluoroscopic guidance was provided during right hip replacement procedure performed by Dr. Browning. A total of 13 seconds of fluoroscopic time was utilized during the procedure and 1 spot intraoperative images acquired. Single intraoperative image acquired shows metallic hardware from right hip arthroplasty satisfactory in position on frontal projection. IMPRESSION: As Above.
[2021-01-27] MEDS: HYDROmorphone 0.5 MG/0.5 ML SYRINGE IVP PRN ×3 (12:27→12:51)
[2021-01-27 12:30] VITALS: TEMP 96.9
[2021-01-27 13:13] VITALS: RESP 16
[2021-01-27] MEDS ORDERED: HYDROcodone/APAP 5-325MG 1 EACH TAB PO ONE (13:21)
[2021-01-27] MEDS ORDERED: ONDANSETRON 4 MG/2 ML VIAL IVP ONE (14:49)
[2021-01-27 15:24] VITALS: BP 99/64; PULSE 60
== END 2021-01-27 16:16 | disposition home health service (06) ==
LOC: OR 08:36
PROVIDERS: ATTEND Orthopaedic Surgery
DX: M16.11 Unilateral primary osteoarthritis, right hip (principal); I10 Essential (primary) hypertension; F32.9 Major depressive disorder, single episode, unspecified; G25.81 Restless legs syndrome; K21.9 Gastro-esophageal reflux disease without esophagitis; E03.9 Hypothyroidism, unspecified; Z79.899 Other long term (current) drug therapy; Z88.0 Allergy status to penicillin
CPT/HCPCS: 27130; 97110; 97161; 86900; 86901; 80051; 85025; 85610; 86850; 88300; 87070; 73501; 93005; 36415; C1776 ×2; J2250; J1100; J0690 ×2; J2405; J2001; J3010; J0330; J2704; J1170

== ENCOUNTER → 2021-07-31 | Outpatient (CLI) | payer OTHER ==
--- NOTE | 2021-08-01 11:00 | MM ---
Reason for Exam: Screening (asymptomatic). Last mammogram was performed 1 year(s) and 1 month(s) ago. Patient History: Menarche at age 12. First Full-Term at age 21. Hysterectomy at age 46. Hormonal Contraceptives, starting at age 18 for 12 years. Risk Values: Jaleesa 5 year model risk: 0.9%. NCI Lifetime model risk: 7.8%. Film Views: Bilateral CC views were taken. Bilateral MLO views were taken. Prior Study Comparison: 03/18/2018 Bilateral Screening Mammogram, [facility]. 04/12/2019 Bilateral Screening Mammogram, [facility]. 07/04/2020 Bilateral Screening Mammogram, [facility]. Tissue Density: The breast tissue is heterogeneously dense. This may lower the sensitivity of mammography. Findings: Analyzed By CAD. There is no suspicious group of microcalcifications or new suspicious mass in either breast. Overall Assessment: Benign, BI-RAD 2 Management: Screening Mammogram of both breasts in 1 year. A clinical breast exam by your physician is recommended on an annual basis and results should be correlated with mammographic findings. Electronically signed and approved by: Hernan Hurt M.D. Radiologis
== END | disposition home or self-care (01) ==
LOC: RADMAMWWP 16:51
PROVIDERS: ATTEND Family Medicine
DX: Z12.31 Encounter for screening mammogram for malignant neoplasm of breast (principal)
CPT/HCPCS: 77063; 77067

== ENCOUNTER → 2022-04-08 | Outpatient (CLI) | payer OTHER ==
--- NOTE | 2022-04-08 16:31 | CA ---
Exercise Stress Test Report Name: Kasia Mora Exam Date: 04/08/2022 09:02 Exam Location: [place] Stress Ht (in): 64 Wt (lb): 204 BSA: 1.97 Ordering Phys: Hernan Dominguez MD Referring Phys: EITAN, Technologist: Nabil Castillo Age: 51 Gender: F : 1970 Procedure CPT: Indications: R94.31 I49.3 R00.2 ICD-10 Codes: Patient History: Medications: Meds past 24 hrs: Pretest Chest Pain: STRESS TEST Patrick Protocol Exercise Duration (min:sec): 09:[address] Depressions (mm): Angina Score: Lomax Score: Resting HR (bpm): 101 Peak HR (bpm): 154 Resting BP (mmHg): 135 / 88 Peak BP (mmHg): 203 / 106 MPHR: 168 Target HR: 143 % MPHR: 92 METS: 10.3 Total Dose: Peak Dose: Atropine: Double Product: 07964 BP Response: Stress Termination: Reached target heart rate Stress Symptoms: NO SYMPTOMS Stress Summary: ECG ANALYSIS Resting ECG: Stress ECG: CONCLUSIONS Excellent exercise tolerance Normal EKG in response to exercise Dr. Orlando Zamora MD (Electronically Signed) Final Date: 08 April 2022 16:30
== END | disposition home or self-care (01) ==
LOC: RADNMMAIN 08:35
PROVIDERS: ATTEND Family Medicine
DX: I49.3 Ventricular premature depolarization (principal); R94.31 Abnormal electrocardiogram [ECG] [EKG]; R00.2 Palpitations
CPT/HCPCS: 93017

== ENCOUNTER → 2022-08-24 | Outpatient (CLI) | payer OTHER ==
--- NOTE | 2022-08-24 09:29 | MM ---
Reason for Exam: Screening (asymptomatic). Last mammogram was performed 1 year(s) and 1 month(s) ago. Patient History: Menarche at age 12. First Full-Term at age 21. Hysterectomy at age 46. Hormonal Contraceptives, starting at age 18 for 12 years. Risk Values: Jaleesa 5 year model risk: 1.0%. NCI Lifetime model risk: 7.7%. Prior Study Comparison: 04/12/2019 Bilateral Screening Mammogram, [facility]. 07/04/2020 Bilateral Screening Mammogram, [facility]. 07/31/2021 Bilateral MG 3D screening mammo w/cad, [facility]. Tissue Density: There are scattered fibroglandular densities. Findings: Analyzed By CAD. There is no suspicious group of microcalcifications or new suspicious mass in either breast. Overall Assessment: Negative, BI-RAD 1 Management: Screening Mammogram of both breasts in [address] [facility] will attempt to contact patient to return for supplemental views and ultrasound if indicated. Patient should continue monthly self-breast exams. A clinical breast exam by your physician is recommended on an annual basis. This exam should not preclude additional follow-up of suspicious palpable abnormalities. Note on Jaleesa scores and lifetime risk: 1. A Jaleesa score greater than 3% is considered moderate risk. If this is the case, consider specialist referral to assess eligibility for a risk reducing agent. 2. If overall lifetime risk for the development of breast cancer is 20% or higher, the patient may qualify for future screening with alternating mammogram and breast MRI. Electronically signed and approved by: Mal Rehman DO
== END | disposition home or self-care (01) ==
LOC: RADMAMWWP 09:05
PROVIDERS: ATTEND Family Medicine
DX: Z12.31 Encounter for screening mammogram for malignant neoplasm of breast (principal)
CPT/HCPCS: 77063; 77067

== ENCOUNTER → 2023-06-30 | Outpatient (CLI) | payer OTHER | END | disposition home or self-care (01) | LOC: LABWHC1 16:06 | PROVIDERS: ATTEND Orthopaedic Surgery | DX: M17.0 Bilateral primary osteoarthritis of knee (principal); Z96.641 Presence of right artificial hip joint | CPT/HCPCS: 36415; 85379; 85652; 86140 ==

== ENCOUNTER → 2023-12-31 | Outpatient (CLI) | payer OTHER ==
--- NOTE | 2023-12-31 09:28 | CT ---
EXAMINATION TYPE: CT left knee - [facility] Protocol DATE OF EXAM: 12/31/2023 COMPARISON: Outside radiographs 08/22/2021 HISTORY: 53-year-old female M25.562, left knee pain, pre op planning TECHNIQUE: CT scanning of the bilateral hips, left knee, and bilateral ankles with coronal and sagitt al reconstructions. No IV contrast. CT DLP: 1295 mGycm Automated exposure control for dose reduction was used. FINDINGS: Pelvis and bilateral hips: There appears to be mild pelvic floor relaxation. Uterus surgically absent. No abnormal fluid collect ion in the pelvis. There is a right hip total arthroplasty which appears adequately seated. Left hip joint intact. Left knee: There is tricompartmental degenerative change with prominent marginal spurring. Severe degenerative c hange patellofemoral and medial compartments. Extensor mechanism is intact. No significant joint effu lance or sizable Yeboah's cyst is seen. Bilateral ankles: No acute fracture, subluxation, or dislocation is seen. Ankle mortise is grown. Talar domes are intac t. IMPRESSION: 1. TRICOMPARTMENTAL OSTEOARTHROSIS LEFT KNEE, SEVERE IN THE PATELLOFEMORAL AND THEN THE MEDIAL COMPAR TMENTS. 2. STATUS POST RIGHT HIP ARTHROPLASTY WHICH REMAINS INTACT. MILD DEGENERATIVE CHANGE LEFT HIP. [facility], , 12/31/2023 9:07 AM
== END | disposition home or self-care (01) ==
LOC: RADCTMAIN 07:36
PROVIDERS: ATTEND Orthopaedic Surgery
DX: M25.562 Pain in left knee

== ENCOUNTER → 2024-01-17 | Outpatient (CLI) | payer OTHER ==
[2024-01-17 16:25] LABS: INR 0.9 (<1.2); Prothrombin Time 10.1 sec (10.0-12.5)
[2024-01-17 16:26] LABS: Partial Thromboplastin Time 25.7 sec (22.0-30.0)
[2024-01-17 18:14] LABS: HCT 41.7 % (37.2-46.3); HGB 13.6 g/dL (12.0-15.0); MCH 29.6 pg (27.0-32.0); MCHC 32.6 g/dL (32.0-37.0); MCV 90.8 FL (80.0-97.0); NRBC Per 100 WBC 0 X 10*3/uL (0.00-0.01); Platelet Count 321 X 10*3/uL (140-440); RBC 4.59 X 10*6/uL (4.10-5.20); RDW 13.4 % (11.5-14.5); WBC 8.16 X 10*3/uL (4.50-10.00)
[2024-01-17 18:21] LABS: ALT 28 U/L (8-44); AST 24 U/L (13-35); Albumin 4.4 g/dL (3.8-4.9); Alkaline Phosphatase 93 U/L (41-126); Calcium 9.9 mg/dL (8.7-10.3); Chloride 104 mmol/L (96-109); Globulin 2.2 g/dL (1.6-3.3); Glucose 89 mg/dL (70-110); Potassium 4.9 mmol/L (3.5-5.5); Sodium 142 mmol/L (135-145); Total Bilirubin 0.2 mg/dL (0.3-1.2); Total Protein 6.6 g/dL (6.2-8.2)
== END | disposition home or self-care (01) ==
LOC: LABPAT 14:47
PROVIDERS: ATTEND Orthopaedic Surgery
DX: Z01.818 Encounter for other preprocedural examination (principal); E11.9 Type 2 diabetes mellitus without complications; M17.12 Unilateral primary osteoarthritis, left knee; Z22.322 Carrier or suspected carrier of Methicillin resistant Staphylococcus aureus
CPT/HCPCS: 80053; 83036; 85027; 85610; 85730; 87070; 93005

== ENCOUNTER 2024-02-09 12:35 | Day surgery (SDC) | payer OTHER ==
[2024-02-02 16:10] VITALS: BMI 38.6
[~2024-02-09 12:35] MED LIST changes: -ACETAMINOPHEN TAB 500 MG TAB PO PRN; -DEXAMETHASONE SOD PHOSPHATE 4 MG/ML 1 ML VIAL IV ONE; -LACTATED RINGERS 1,000 ML IV SCH; -MELOXICAM 7.5 MG TAB PO PRN; -ONDANSETRON 4 MG/2 ML VIAL IVP ONE; +ONDANSETRON 4 MG/2 ML VIAL IVP PRN; +TRANEXAMIC 1,000 MG/100ML-NACL 1,000 MG in SALINE 1 100ML.BAG IV PRN; +TRANEXAMIC 1,000 MG/100ML-NACL 1,000 MG in SALINE 1 100ML.BAG IVPB PRN; -TRANEXAMIC ACID 1,000 MG in SODIUM CHLORIDE 0.9% 100 ML IVPB PRN; -VANCOMYCIN 1,250 MG in SODIUM CHLORIDE 0.9% 250 ML IVPB PRN
[2024-02-09] MEDS: LACTATED RINGERS 1,000 ML IV SCH (14:05)
[2024-02-09] MEDS: LIDOCAINE 1% (10MG/ML) FOR IV START INTRADERMA PRN (14:05)
[2024-02-09] MEDS: IV FLUID CONTINUATION 1,000 ML IV ONE (14:05)
[2024-02-09] MEDS: oxyCODONE ER 10 MG TAB.ER.12H PO PRN (14:12)
[2024-02-09] MEDS: DOCUSATE 100 MG CAP PO PRN (14:12)
[2024-02-09] MEDS: ACETAMINOPHEN TAB 500 MG TAB PO PRN (14:12)
[2024-02-09] MEDS: ONDANSETRON 4 MG/2 ML VIAL IVP ONE (14:13)
[2024-02-09] MEDS: KETOROLAC 15 MG/ML 1 ML VIAL IVP PRN (14:13)
[2024-02-09] MEDS: DEXAMETHASONE SOD PHOSPHATE 10 MG/ML 1 ML VIAL IV PRN (14:13)
[2024-02-09 14:14] LABS: Glucose,Whole Blood 91 mg/dL (70-110)
[2024-02-09] MEDS: FAMOTIDINE 20 MG/2 ML VIAL IVP PRN (14:14)
[2024-02-09] MEDS: MIDAZOLAM 2 MG/2 ML VIAL IV PRN (14:32)
--- NOTE | 2024-02-09 14:48 | P.ANPRN ---
Procedure Note - Anesthesia - Nerve Block Performed Left iPack Single Time Out Performed: Yes Date of Procedure: 02/09/24 Procedure Start Time: 14:32 Procedure Stop Time: 14:37 Location of Patient: PreOp Indication: Acute Post-Operative Pain, Analgesia, Requested by Surgeon Sedation Type: Sedate with meaningful contact maintained Preparation: Sterile Prep Position: Right Lateral Catheter: None Needle Types: Pajunk Needle Gauge: 21 Ultrasound used to visualize needle placement: Yes Ultrasound used to observe medication spread: Yes Injectate: 0.5% Ropivacaine (see comment for volume) ([id number]+Decadron 4mg) Blood Aspirated: No Pain Paresthesia on Injection Noted: No Resistance on Injection: Normal Image Stored and Saved: Yes Events: Uneventful and Well Tolerated
--- NOTE | 2024-02-09 14:49 | P.ANPRN ---
Procedure Note - Anesthesia - Nerve Block Performed Left Adductor Canal Single Time Out Performed: Yes Date of Procedure: 02/09/24 Procedure Start Time: 14:37 Procedure Stop Time: 14:42 Location of Patient: PreOp Indication: Acute Post-Operative Pain, Analgesia, Requested by Surgeon Sedation Type: Sedate with meaningful contact maintained Preparation: Sterile Prep Position: Supine Catheter: None Needle Types: Pajunk Needle Gauge: 21 Ultrasound used to visualize needle placement: Yes Ultrasound used to observe medication spread: Yes Injectate: 0.5% Ropivacaine (see comment for volume) (Ropiv 15ml+Decadron 4mg) Blood Aspirated: No Pain Paresthesia on Injection Noted: No Resistance on Injection: Normal Image Stored and Saved: Yes Events: Uneventful and Well Tolerated
[2024-02-09] MEDS ORDERED: NEOSTIGMINE 1 MG/ML 10 ML VIAL ONE (14:58)
[2024-02-09] MEDS ORDERED: ROPIVACAINE 5 MG/ML 30 ML VIAL ONE (14:58)
[2024-02-09] MEDS ORDERED: MIDAZOLAM 2 MG/2 ML VIAL ONE (14:58)
[2024-02-09] MEDS ORDERED: PROPOFOL 10 MG/ML 20 ML VIAL IV ONE (14:58)
[2024-02-09] MEDS ORDERED: PHENYLEPHRINE-0.9% NACL SYG 1,000 MCG/10 ML SYRINGE ONE (14:58)
[2024-02-09] MEDS ORDERED: GLYCOPYRROLATE 0.2 MG/ML 2 ML VIAL ONE (14:58)
[2024-02-09] MEDS ORDERED: ROCURONIUM 10 MG/ML (5 ML VIAL) IV ONE (14:58)
[2024-02-09] MEDS ORDERED: fentaNYL (PF) 50 MCG/ML 2 ML AMP ONE (14:58)
[2024-02-09] MEDS ORDERED: SUCCINYLCHOLINE CHLORIDE 200 MG/10 ML VIAL IV ONE (14:58)
[2024-02-09] MEDS ORDERED: DEXAMETHASONE SOD PHOSPHATE 10 MG/ML 1 ML VIAL ONE (14:58)
[2024-02-09] MEDS ORDERED: LIDOCAINE 1% INJ 10MG/ML (20 ML MDV) ONE (14:58)
[2024-02-09] MEDS ORDERED: DEXAMETHASONE SOD PHOSPHATE 4 MG/ML 1 ML VIAL ONE (14:58)
[2024-02-09] MEDS ORDERED: TRANEXAMIC 1,000 MG/100ML-NACL PREMIX BAG ONE (14:58)
[2024-02-09] MEDS: ROPIVACAINE/EPI/CLONIDINE/KET 50 ML SYRINGE MISCELLANE PRN (15:52)
[2024-02-09] MEDS: LACTATED RINGERS 1,000 ML IV ONE (16:15)
[2024-02-09] MEDS ORDERED: diazePAM 5 MG TAB PO PRN ×2 (17:07)
[2024-02-09] MEDS ORDERED: NA PHOS,M-B/NA PHOS,DI-BA 133 ML ENEMA RECTAL PRN (17:07)
[2024-02-09] MEDS ORDERED: NALOXONE 0.4 MG/ML 1 ML VIAL IV PRN (17:07)
[2024-02-09] MEDS ORDERED: ONDANSETRON 4 MG/2 ML VIAL IVP PRN (17:07)
[2024-02-09] MEDS ORDERED: hydrOXYzine pamoate 25 MG CAP PO PRN (17:07)
[2024-02-09] MEDS ORDERED: MAGNESIUM HYDROXIDE 2,400 MG/30 ML CUP PO PRN (17:07)
[2024-02-09] MEDS ORDERED: HYDROmorphone 1 MG/ML 1 ML SYRINGE IVP PRN (17:07)
[2024-02-09] MEDS ORDERED: bisacodyL 10 MG SUPP RECTAL PRN (17:07)
--- NOTE | 2024-02-09 17:07 | P.OP ---
Date of Procedure: 02/09/24 Preoperative Diagnosis: 1. Severe left knee osteoarthritis 2. BMI 39.3 Postoperative Diagnosis: Same Procedure(s) Performed: 1. Left total knee arthroplasty 2. Computer assisted musculoskeletal navigation using CT/MRI images Implants: 1. [place] Triathlon CR Femur Size #4 2. [place] Tri[employer]lon [place] Tibial Base Size #3 3. [place] [employer] CS poly Size #3, 9-mm 4. [place] Tri[employer]lon all poly patella, Size #29 Anesthesia: FRANCHESCA, regional Surgeon: Rodolfo Mckinnon Director Of Bands #1: Efe Livingston Estimated Blood Loss (ml): 100 IV fluids (ml): 800 Pathology: none sent Condition: stable Disposition: PACU Indications for Procedure: I met with the patient preoperatively in the office setting and discussed treatment of their symptomatic knee arthritis. They failed a long course of nonsurgical treatment and elected to proceed with an elective total knee replacement. I discussed the potential risks and complications at length and gave them ample time to ask questions. Risks discussed included: risks from anesthesia, superficial site surgical infection, acute and/or chronic periprosthetic joint infection, delayed wound healing, drainage, wound necrosis, instability, stiffness, stiffness requiring manipulation and/or revision surgery, damage to local blood vessels or nerves, aseptic loosening of the implants, extensor mechanism issues including disruption, patellar maltracking, avascular necrosis etc., continued or worsened knee pain, generalized dissatisfaction with surgical outcome, need for revision surgery, an inability to regain preinjury level of function, DVT, PE, other medical complications, and possibly loss of life or limb. The patient voiced their understanding that while these are the most common complications other less common complications are possible. They provided both their verbal and written consent to go forward with surgery. Operative Findings: Severe tricompartmental arthritis Description of Procedure: The patient was identified in preoperative holding and the correct operative extremity was verified and marked with a marker. I reviewed the consent form with the patient at length. All of their questions were answered. The patient was given a block by anesthesia. They were then brought back to the operating room. They were transferred onto the operating room table where a general anesthetic, preoperative antibiotics, and tranexamic acid were administered by anesthesia. A tourniquet was applied to the proximal aspect of the operative extremity. The contralateral extremity was padded under the heel and secured to the operating room table with a nonsterile blue towel and tape. The ipsilateral arm was carefully draped across the patient's chest and secured with a pillow and foam. A post was applied over the lateral aspect of the ipsilateral thigh and a bolster was placed under the ipsilateral foot. I verified that the operative extremity was stable and the knee was flexed to 90. The operative extremity was then placed in a leg briggs, nonsterile drapes were applied, and the extremity was prepped and draped sterilely in the standard sterile fashion. Prior to starting surgery timeout was performed identifying the correct patient, operative extremity, and procedure. The leg was then elevated, exsanguinated with an Esmarch bandage, and the tourniquet was inflated. An anterior midline incision was made sharply with a scalpel. Once I had dissected deep to the superficial fascial layer medial and lateral flaps were elevated. A medial parapatellar arthrotomy was created. Upon opening the knee joint there were diffuse arthritic changes in all 3 compartments. The anterior horn of the medial meniscus were sharply released and a medial release was performed around the posterior medial corner of the knee to facilitate retractor placement. The fat pad was excised with electrocautery. The patella was found to be severely arthritic and a provisional cut was made with a sagittal saw to facilitate mobilization of the extensor mechanism during the procedure. Remnants of the ACL and PCL were then excised from the notch. 4 mm pins were then placed within the incision in the medial distal femur and proximal tibia. Arrays were applied to the pins and I verified they were completely tightened. The knee was then registered with the SoundBetter robot and manipulations in implant position were made to balance the knee and opitmize implant position. Using the Glen robotic saw all cuts were made in accordance with our plan. After all bony fragments had been removed the cuts were verified with the planar probe. The tibia was then subluxed forward and sized. The knee was brought into flexion and a lamina button sewing machine operator was placed to allow removal of the meniscal remnants both medially and laterally as well as posterior osteophytes. Local anesthetic was then infiltrated around the joint capsule. Trial implants were then placed within the knee. Range of motion and collateral ligament tension was then evaluated. Adjustments in implant size and position were then made accordingly. Once the knee was felt to be appropriately balanced the Glen pins were removed. The patella was then recut, sized, and punched. A trial patellar button was then placed. With the trial components in place, the patella tracked midline. The femur was then drilled and the trial component removed. The trial tibial component was then appropriately rotated, pinned, and prepared for the keel. All trial components were then removed from the knee. The knee was thoroughly irrigated with pulsatile lavage. Cement was prepared via vacuum mixing in a bowl on the back table. I then hand pressurized cement into the femur and tibia and placed the implants beginning with the tibial base tray and poly liner, femoral component, and finally the patellar button. All extruded cement was removed including from the pin sites. Once the cement had hardened the knee was evaluated one final time with the final polyethylene liner in place. The knee had full extension and flexion and felt stable to varus and valgus stress throughout the arc of motion. The tourniquet was released and with the tourniquet down the patella tracked midline. All bleeders were controlled with electrocautery. The knee was then soaked for 3 minutes with a dilute Betadine soak. The knee was thoroughly irrigated using 3 L of sterile saline and pulsatile lavage. The extensor mechanism was then reapproximated using pop off Vicryl sutures followed by a running barbed suture. The knee was then closed in layers with a 0 strata fix for the deep fascial layer, 2-0 strata fix for the superficial subcutaneous layer and Monocryl and Steri-Strips for the skin. A sterile dressing was applied. I verified that all instrument, sponge, and sharp counts were correct. The patient was then transferred off the operating room table, extubated, and brought to recovery having tolerated the procedure well. Efe Livingston PA-C was required as a skilled business banking sales assistant for patient positioning, draping, exposure, retraction, closure of wound and application of dressing PLAN: The patient can weight-bear as tolerated on the operative extremity. DVT prophylaxis with aspirin 81 mg twice a day based on preoperative risk stratification. Internal medicine for perioperative medical management. 2 doses of post-operative antibiotics. Physical therapy for gait training. Follow-up in the office in 2 weeks for wound check and x-rays of the knee including an AP and lateral.
[2024-02-09] MEDS: fentaNYL (PF) 50 MCG/ML 2 ML AMP IVP PRN (17:39)
--- NOTE | 2024-02-09 17:41 | XR ---
EXAMINATION TYPE: XR knee limited LT DATE OF EXAM: 02/09/2024 5:34 PM COMPARISON: None. CLINICAL INDICATION: Female, 53 years old with history of Evaluation for Postop abnormality and align ment, pain TECHNIQUE: Portable AP and crosstable lateral views of the left knee are obtained immediately postop eratively. FINDINGS: Metallic hardware from total left knee arthroplasty is seen and appears satisfactory in a lignment and position. There is evidence of recent surgery with diffuse subcutaneous gas and soft ti ssue swelling noted. IMPRESSION: METALLIC HARDWARE FROM TOTAL left KNEE ARTHROPLASTY IS SATISFACTORY IN ALIGNMENT. [facility], , 02/09/2024 5:39 PM
[2024-02-09] MEDS: HYDROmorphone 0.5 MG/0.5 ML SYRINGE IVP PRN (18:20)
[2024-02-09 20:54] VITALS: RESP 18
[2024-02-09] MEDS: DEXAMETHASONE SOD PHOSPHATE 4 MG/ML 1 ML VIAL IV ONE (20:54)
[2024-02-09] MEDS: SENNOSIDES-DOCUSATE SODIUM 1 EACH TAB PO SCH (21:29)
[2024-02-09] MEDS: HYDROcodone/APAP 10-325MG 1 EACH TAB PO PRN (21:29)
[2024-02-09] MEDS: ASPIRIN 81 MG PO SCH (21:29)
[2024-02-09] MEDS: SODIUM CHLORIDE 0.9% 1,000 ML IV SCH (21:45)
[2024-02-09] MEDS ORDERED: TEMAZEPAM 15 MG CAP PO PRN (22:00)
[2024-02-10] MEDS: HYDROmorphone 0.5 MG/0.5 ML SYRINGE IVP PRN (01:51)
[2024-02-10] MEDS: HYDROcodone/APAP 5-325MG 1 EACH TAB PO PRN (04:58)
[2024-02-10 08:13] VITALS: BP 114/67; PULSE 79; TEMP 98.6
--- NOTE | 2024-02-10 08:21 | P.PN ---
Subjective Progress Note Date: 02/10/24 02/10/2024: No acute events overnight. Patient is doing well this morning. The pain in their knee is mild to moderate. They have walked to the bathroom with a walker and assistance. Objective - Vital Signs Vital signs: Vital Signs Temp 98.6 F 02/10/24 07:11 Pulse 79 02/10/24 07:11 Resp 18 02/10/24 07:11 BP 114/67 02/10/24 07:11 Pulse Ox 91 L 02/10/24 07:11 FiO2 Intake & Output 02/09/24 02/10/24 02/10/24 18:59 06:59 18:59 Intake Total 1850 Output Total 100 Balance 1750 Weight 103.8 kg 103.8 kg Intake: IV 1850 Output: Estimated Blood Loss 100 Other: # Voids 3 - Exam Patient was examined at bedside. Patient is resting comfortably in bed. No apparent distress. They are awake, alert and able to answer questions. On inspection the surgical knee dressing is intact, there is no drainage or strikethrough. The skin surrounding the dressing is free of erythema. There is mild swelling in the operative thigh. Operative femoral nerve function is intact. The patient is able to actively plantarflex and dorsiflex their operative ankle and toes. Their calf is soft to compression. Assessment and Plan Assessment: Postop day #1 status post left total knee arthroplasty for severe left knee osteoarthritis Plan: Weight-bear as tolerated on the operative extremity. Use a walker to ambulate. Leave surgical dressing in place. Physical therapy for gait training and mobilization. Internal medicine for perioperative medical management. Disposition: Patient will work with physical therapy this morning, if passes physical therapy and their pain is controlled patient may be discharged home later today.
--- NOTE | 2024-02-10 08:28 | P.DS ---
Providers Attending physician: Rodolfo Mckinnon Consults: 02/09/24 17:07 Consult Physician Routine Consulting Provider: Hernan Dominguez Consult Reason/Comments: post op medical management Do you want consulting provider notified?: Yes Primary care physician: Hernan Dominguez MD Hospital Course: Patient is a 53-year-old female who failed conservative management of severe left knee osteoarthritis. On 02/09/2024 patient presented to preop for scheduled left total knee arthroplasty by Dr. Mckinnon. Patient tolerated the procedure well. Patient was transferred to the orthopedic floor. Patient was evaluated postop day #[address] Mckinnon at bedside. Patient was found to be doing well. Patient worked with physical therapy and it was determined patient was safe to transfer home. Patient will follow-up in 2 weeks. Please do not hesitate to call our office with questions. Assessment: Postop day #1 status post left total knee arthroplasty for severe left knee osteoarthritis Left knee pain Plan - Discharge Summary Discharge Rx Participant: Yes New Discharge Prescriptions: New Docusate [Colace] 100 mg PO BID #60 capsule Diclofenac Sodium [Voltaren] 75 mg PO BID #60 tab Doxycycline Monohydrate 100 mg PO BID #30 cap HYDROcodone/APAP 10-325MG [[place] 10] 1 each PO Q6H PRN #32 tab PRN Reason: Pain Aspirin 81 mg PO BID #60 tab Omeprazole 40 mg PO DAILY #30 cap No Action Calcium/D-Plus(Unknown Dose) 2 cap PO 1200 hydroCHLOROthiazide 25 mg PO QAM rOPINIRole HCL [Requip] 0.5 mg PO HS Thyroid,Pork [Treasurer Thyroid] 60 mg PO QAM Zinc Gluconate [Zinc] 30 mg PO 1200 Meloxicam [Mobic] 15 mg PO QAM Ascorbic Acid [Vitamin C] 250 mg PO 1200 Progesterone, Micronized [Progesterone] 100 mg PO HS Discharge Medication List Thyroid,Pork [Treasurer Thyroid] 60 mg PO QAM 06/05/20 [History] rOPINIRole HCL [Requip] 0.5 mg PO HS 06/05/20 [History] Ascorbic Acid [Vitamin C] 250 mg PO 1200 02/02/24 [History] Calcium/D-Plus(Unknown Dose) 2 cap PO 1200 02/02/24 [History] Meloxicam [Mobic] 15 mg PO QAM 02/02/24 [History] Progesterone, Micronized [Progesterone] 100 mg PO HS 02/02/24 [History] Zinc Gluconate [Zinc] 30 mg PO 1200 02/02/24 [History] hydroCHLOROthiazide 25 mg PO QAM 02/02/24 [History] Aspirin 81 mg PO BID #60 tab 02/09/24 [Rx] Diclofenac Sodium [Voltaren] 75 mg PO BID #60 tab 02/09/24 [Rx] Docusate [Colace] 100 mg PO BID #60 capsule 02/09/24 [Rx] Doxycycline Monohydrate 100 mg PO BID #30 cap 02/09/24 [Rx] Omeprazole 40 mg PO DAILY #30 cap 02/09/24 [Rx] HYDROcodone/APAP 10-325MG [[place] 10] 1 each PO Q6H PRN #32 tab 02/10/24 [Rx] Follow up Appointment(s)/Referral(s): Rodolfo Mckinnon MD [Medical Doctor] - 2 Weeks Activity/Diet/Wound Care/Special Instructions: 1. Weight-bear as tolerated on your operative extremity unless instructed otherwise. Use a walker or other assistive device to ambulate. 2. Leave surgical dressing in place. If your dressing becomes saturated with blood, there is drainage, or the dressing becomes loose please contact the office. 3. It is okay to shower with your surgical dressing, but do not submerge in water (no hot tubs, bath's, swimming etc.) 4. Make sure to take her blood clot prevention medication as prescribed (aspirin, Eliquis, Xarelto, and Plavix are commonly prescribed medications for blood clot prevention) 5. While taking Dup[place]er or Percocet for pain make sure you're taking a stool softener (Colace) and drink lots of water. 6. Keep all follow-up appointments as scheduled. You will usually be seen in 1-2 weeks following surgery. 7. Please contact the office with any questions or concerns [phone] Discharge Disposition: HOME WITH HOME HEALTH SERVICES
[2024-02-10 09:18] LABS: Basophils # (A) 0.02 X 10*3/uL (0.00-0.10); Basophils % (A) 0.1 %; Eosinophils # (A) 0 X 10*3/uL (0.04-0.35); Eosinophils % (A) 0 %; HCT 36.4 % (37.2-46.3); Lymphocytes # (A) 0.74 X 10*3/uL (0.90-5.00); Lymphocytes % (A) 4.3 %; Monocytes # (A) 0.36 X 10*3/uL (0.20-1.00); Monocytes % (A) 2.1 %; NRBC Per 100 WBC 0 X 10*3/uL (0.00-0.01); Neutrophils # (A) 16.05 X 10*3/uL (1.80-7.70); Neutrophils % (A) 92.8 %; Platelet Count 284 X 10*3/uL (140-440); RDW 13.8 % (11.5-14.5); WBC 17.29 X 10*3/uL (4.50-10.00)
--- NOTE | 2024-02-10 11:38 | P.CONS ---
History of Present Illness - Reason for Consult Consult date: 02/10/24 Medical management Requesting physician: Rodolfo Mckinnon - Chief Complaint Left knee osteoarthritis status post left total knee arthroplasty - History of Present Illness This is a 53-year-old female status post left total knee arthroplasty secondary to osteoarthritis. Tolerated procedure well. Reports positive pain once nerve block wore off earlier this morning. Pain currently controlled, recently medicated. Reports she slept well. Participated with PT and completed steps. Denies chest pain, palpitations or shortness of breath. Denies lightheadedness, dizziness or focal deficits. Patient is eager for discharge. Review of Systems Constitutional: Denied any fatigue denied any fever. Cardio vascular: denied any chest pain, palpitations Gastrointestinal denied any nausea vomiting Pulmonary: Denied any shortness of breath cough Neurologic denied any new focal deficits ROS Statement: Those systems with pertinent positive or pertinent negative responses have been documented in the HPI. ROS Other: All systems not noted in ROS Statement are negative. Past Medical History Past Medical History: GERD/Reflux, Osteoarthritis (OA), Thyroid Disorder Additional Past Medical History / Comment(s): RLS, "Several times my BP was slightly elevated." "When they did an EKG or stress test they found premature contractions /double beats." "The letter T/wave flattening." History of Any Multi-Drug Resistant Organisms: None Reported Past Surgical History: Hysterectomy, Joint Replacement, Orthopedic Surgery, Tonsillectomy, Uterine Ablation Additional Past Surgical History / Comment(s): lt knee-scope,diagnostic laparoscopic abdominal surgery ,rt hip injections, Total rt hip. Colonoscopy, E GD. Past Anesthesia/Blood Transfusion Reactions: Motion Sickness, Postoperative Nausea & Vomiting (PONV) Additional Past Anesthesia/Blood Transfusion Reaction / Comm: no hx blood transfusion to date. Past Psychological History: ADD/ADHD Additional Psychological History / Comment(s): seasonal depression Smoking Status: Never smoker Past Alcohol Use History: Rare Past Drug Use History: None Reported - Past Family History Mother Family Medical History: Cancer Additional Family Medical History / Comment(s): Melanoma stage 4. Patient was adopted, this is the only family hx she is aware of. Medications and Allergies Home Medications Medication Instructions Recorded Confirmed Type Thyroid,Pork [Goat Driver Thyroid] 60 mg PO QAM 06/05/20 02/02/24 History rOPINIRole HCL [Requip] 0.5 mg PO HS 06/05/20 02/02/24 History Ascorbic Acid [Vitamin C] 250 mg PO 1200 02/02/24 02/02/24 History Calcium/D-Plus(Unknown Dose) 2 cap PO 1200 02/02/24 02/02/24 History Meloxicam [Mobic] 15 mg PO QAM 02/02/24 02/02/24 History Progesterone, Micronized 100 mg PO HS 02/02/24 02/02/24 History [Progesterone] Zinc Gluconate [Zinc] 30 mg PO 1200 02/02/24 02/02/24 History hydroCHLOROthiazide 25 mg PO QAM 02/02/24 02/02/24 History Aspirin 81 mg PO BID #60 tab 02/09/24 Rx Diclofenac Sodium [Voltaren] 75 mg PO BID #60 tab 02/09/24 Rx Docusate [Colace] 100 mg PO BID #60 capsule 02/09/24 Rx Doxycycline Monohydrate 100 mg PO BID #30 cap 02/09/24 Rx Omeprazole 40 mg PO DAILY #30 cap 02/09/24 Rx HYDROcodone/APAP 10-325MG [[place] 1 each PO Q6H PRN #32 tab 02/10/24 Rx 10] Allergies Allergy/AdvReac Type Severity Reaction Status Date / Time Penicillins Allergy Anaphylaxis Verified 02/02/24 15:48 Physical Exam Vitals: Vital Signs Temp Pulse Pulse Pulse Resp BP Pulse Ox 02/10/24 07:11 98.6 F 79 18 114/67 91 L 02/10/24 01:02 98.0 F 59 L 18 149/76 100 02/09/24 20:33 97.7 F 69 18 127/68 96 02/09/24 19:40 59 L 20 103/62 97 02/09/24 19:10 60 18 102/56 96 02/09/24 18:39 63 16 98/55 98 02/09/24 18:24 63 18 116/53 98 02/09/24 18:09 83 18 118/59 99 02/09/24 17:54 66 16 120/58 100 02/09/24 17:39 76 18 122/55 100 02/09/24 17:24 97.5 F L 97 18 152/88 100 02/09/24 14:47 74 17 151/69 100 02/09/24 13:50 97.4 F L 70 16 169/93 97 Intake and Output 12/04/24 12/05/24 12/05/24 22:59 06:59 14:59 Intake Total 1750 450 Output Total 100 Balance 1650 450 Intake: IV 1750 Intake, IV Titration 450 Amount Sodium Chloride 0.9% 1, 400 000 ml @ 100 mls/hr IV . Q10H SUZANNE Rx#:[id number] ceFAZolin 2 gm In Sodium 50 Chloride 0.9% 50 ml @ 100 mls/hr IVPB Q8HR SUZANNE Rx# :[id number] Output: Estimated Blood Loss 100 Other: # Voids 1 3 2 Weight 103.8 kg PHYSICAL EXAM: VITAL SIGNS: [Reviewed] GENERAL: Alert and orient x 3, sitting up in bed, no acute distress. HEENT: Normocephalic, conjunctivae normal. eyes normal. NECK: Supple, no JVD. No thyroid enlargement. No LNs CARDIOVASCULAR: S1, S2 regular.. No murmur RESPIRATION: Breath sounds diminished in the bases. No rhonchi or crackles. No bronchial breathing. ABDOMEN: Soft, nontender . No guarding. no masses palpable. No ascites, No hepatosplenomegaly.Bowel sounds heard. LEGS: Left lower extremity dressing clean dry and intact, minimal edema. no calf tenderness. Positive DP pulse NERVOUS SYSTEM: Cranial N 2-12 grossly normal. No focal deficits. Strength and sensation grossly intact. Skin: Warm and dry, no rash Results CBC & Chem 7: 02/10/24 06:05 Labs: Abnormal Lab Results - Last 24 Hours (Table) 02/10/24 Range/Units 06:05 WBC 17.29 H (4.50-10.00) X 10*3/uL RBC 4.00 L (4.10-5.20) X 10*6/uL Hct 36.4 L (37.2-46.3) % Immature Gran # 0.12 H (0.00-0.04) X 10*3/uL Neutrophils # 16.05 H (1.80-7.70) X 10*3/uL Lymphocytes # 0.74 L (0.90-5.00) X 10*3/uL Eosinophils # 0 L (0.04-0.35) X 10*3/uL Assessment and Plan Assessment: Left knee osteoarthritis status post left total knee arthroplasty Postoperative atelectasis Leukocytosis postoperative secondary to the above Gastroesophageal reflux disease Hypothyroidism History of PONV ADD/ADHD Morbid obesity, BMI 39 Plan: Continue on current medication resume ,monitoring and symptomatic treatment. Pain management/DVT prophylaxis as per primary. Aggressive pulm onary toileting with incentive spirometer reinforced. Follow-up with PCP in 1 week. Thank you for the consult. The impression and plan of care has been dictated as directed. : I performed a history and examination of this patient, discussed the same with the dictator. I agree with the dictator's note ,documented as a scribe. Any additional findings or plans will be noted.
== END 2024-02-10 12:03 | disposition home health service (06) ==
LOC: OR 12:35 → 4SSUR 19:26 → OR 02-10 12:03
PROVIDERS: ATTEND Orthopaedic Surgery
DX: M17.12 Unilateral primary osteoarthritis, left knee (principal); E03.9 Hypothyroidism, unspecified; E66.01 Morbid (severe) obesity due to excess calories; F90.9 Attention-deficit hyperactivity disorder, unspecified type; G25.81 Restless legs syndrome; G89.18 Other acute postprocedural pain; K21.9 Gastro-esophageal reflux disease without esophagitis; Z68.39 Body mass index [BMI] 39.0-39.9, adult; Z79.82 Long term (current) use of aspirin; Z79.890 Hormone replacement therapy; Z79.899 Other long term (current) drug therapy; Z88.0 Allergy status to penicillin; Z90.710 Acquired absence of both cervix and uterus
CPT/HCPCS: 0055T; 27447; 64447; 64999; 85025

== ENCOUNTER → 2024-07-21 | Outpatient (CLI) | payer OTHER ==
--- NOTE | 2024-07-21 08:32 | MM ---
Reason for Exam: Screening (asymptomatic). Last mammogram was performed 1 year(s) and 11 month(s) ago. Patient History: Menarche at age 12. First Full-Term at age 21. Hysterectomy at age 46. Postmenopausal. Hormonal Contraceptives, starting at age 18 for 12 years. Risk Values: Jaleesa 5 year model risk: 1.1%. NCI Lifetime model risk: 7.4%. Prior Study Comparison: 07/04/2020 Bilateral Screening Mammogram, [facility]. 07/31/2021 Bilateral MG 3D screening mammo w/cad, [facility]. 08/24/2022 Bilateral MG 3D screening mammo w/cad, [facility]. Tissue Density: There are scattered areas of fibroglandular density. Findings: Analyzed By CAD. Benign-appearing bilateral axillary lymph nodes are redemonstrated. A few tiny benign-appearing round calcifications in the left breast are redemonstrated. There is no suspicious group of microcalcifications or new suspicious mass in either breast. Overall Assessment: Benign, BI-RAD 2 Management: Screening Mammogram of both breasts in 1 year. . Patient should continue monthly self-breast exams. A clinical breast exam by your physician is recommended on an annual basis. This exam should not preclude additional follow-up of suspicious palpable abnormalities. Note on Jaleesa scores and lifetime risk: 1. A Jaleesa score greater than 3% is considered moderate risk. If this is the case, consider specialist referral to assess eligibility for a risk reducing agent. 2. If overall lifetime risk for the development of breast cancer is 20% or higher, the patient may qualify for future screening with alternating mammogram and breast MRI. [facility], , 07/21/2024 8:29 AM. Electronically signed and approved by: Tong Young M.D.
== END | disposition home or self-care (01) ==
LOC: RADMAMWWP 07:27
PROVIDERS: ATTEND Family Medicine
DX: Z12.31 Encounter for screening mammogram for malignant neoplasm of breast (principal); R92.323 Mammographic fibroglandular density, bilateral breasts; R92.1 Mammographic calcification found on diagnostic imaging of breast; Z78.0 Asymptomatic menopausal state; Z92.0 Personal history of contraception
CPT/HCPCS: 77063; 77067